=== PATIENT | female | born 1990 | race Caucasian/White ===

== ENCOUNTER 2020-05-27 23:10 | Observation (INO) | payer MEDICAID ==
[~2020-05-27] VITALS: Ht 152.4 cm; Wt 100.2 kg
== END 2020-05-28 00:41 | disposition home or self-care (01) ==
LOC: SPU 23:10 → EDUNIT# 06-07 07:30
PROVIDERS: ADMIT Obstetrics & Gynecology; ATTEND Obstetrics & Gynecology
DX: O26.893 Other specified pregnancy related conditions, third trimester (principal); R10.9 Unspecified abdominal pain; Z3A.36 36 weeks gestation of pregnancy
CPT/HCPCS: 81002; G0378

== ENCOUNTER 2020-05-31 09:39 | Outpatient (CLI) | payer MEDICAID, SELFPAY | END 2020-05-31 21:36 | disposition home or self-care (01) | LOC: SLB 09:39 | PROVIDERS: ATTEND Obstetrics & Gynecology | DX: Z03.818 Encounter for observation for suspected exposure to other biological agents ruled out (principal) | CPT/HCPCS: U0003-CS ==